=== PATIENT | female | born 2000 | race Caucasian/White ===

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

== ENCOUNTER 2018-08-08 19:49 | Emergency (ER) | payer OTHER ==
[2018-08-08] MEDS: DEXAMETHASONE 10 MG/ML 1 ML INJ IM (22:27)
[2018-08-08] MEDS: IPRATROPIUM (NEB) 0.5 MG/2.5 ML AMP HHN (22:35)
[2018-08-08] MEDS: ALBUTEROL 0.083% (NEB) 2.5 MG/3 ML AMP HHN (22:36)
== END 2018-08-08 23:08 | disposition home or self-care (01) ==
LOC: FTE 23:08
DX: J45.901 Unspecified asthma with (acute) exacerbation (principal)
CPT/HCPCS: 94664; 96372; 99284-25

== ENCOUNTER 2019-01-02 20:36 | Emergency (ER) | payer OTHER | END 2019-01-02 21:48 | disposition home or self-care (01) | LOC: FTE 20:36 | DX: J45.901 Unspecified asthma with (acute) exacerbation (principal) | CPT/HCPCS: 99283; Z7502 ==